=== PATIENT | female | born 1955 | race Caucasian/White ===

== ENCOUNTER → 2016-11-27 | Outpatient (CLI) | payer BC, OTHER ==
[2016-11-27 12:29] LABS: MEAN CORPUSCULAR HEMOGLOBIN 31.5 pg (27.0-33.0); MEAN CORPUSCULAR HGB CONC 34.5 g/dl (32.0-36.5); MEAN CORPUSCULAR VOLUME 91.4 fl (80.0-96.0); RED CELL DISTRIBUTION WIDTH 13.4 % (11.5-14.5); WHITE BLOOD COUNT 8.3 K/mm3 (4.0-10.0)
[2016-11-27 12:43] LABS: ANION GAP 7 MEQ/L (8-16); BLOOD UREA NITROGEN 10 MG/DL (7-18); CALCIUM LEVEL 8.8 MG/DL (8.8-10.2); CARBON DIOXIDE LEVEL 29 MEQ/L (21-32); CHLORIDE LEVEL 108 MEQ/L (98-107); CREATININE FOR GFR 0.47 MG/DL (0.55-1.02); GLOMERULAR FILTRATION RATE > 60.0 (>45); GLUCOSE, FASTING 107 MG/DL (80-110); POTASSIUM SERUM 4.4 MEQ/L (3.5-5.1); SODIUM LEVEL 144 MEQ/L (136-145)
--- NOTE | 2016-11-27 13:15 | REP ---
CHEST X-RAY: Two views. HISTORY: Cough. FINDINGS: The patient is status post prior median sternotomy. Interstitial markings are prominent diffusely. This may be indicative of interstitial fibrosis. The heart is not enlarged. There is a granulomatous calcification in the right mid lung zone laterally. There is no evidence of pleural effusion. IMPRESSION: Prior sternotomy. Normal heart size. Diffuse interstitial fibrosis pattern. Old granulomatous calcification. Mitral annular calcification is also noted. Signed by Itz Sosa MD 11/27/2016 02:56 P
== END ==
LOC: M LAB 11:53
PROVIDERS: ATTEND Internal Medicine Cardiovascular Disease
DX: R05 Cough (principal); R06.02 Shortness of breath; J84.10 Pulmonary fibrosis, unspecified